=== PATIENT | female | born 1955 | race Caucasian/White ===

== ENCOUNTER 2017-02-07 16:35 | Inpatient (IN) | payer OTHER ==
[2017-02-07] MEDS ORDERED: SODIUM CHLORIDE 0.9% 1,000 ML IV STA ×2 (16:40)
--- NOTE | 2017-02-07 16:46 | ED ---
SOB HPI - General Stated Complaint: Difficulty Breathing Time Seen by Provider: 02/07/17 16:35 Source: patient, family, EMS, RN notes reviewed Mode of arrival: EMS - History of Present Illness Initial Comments: This is a 62-year-old female who just quit smoking recently who apparently has had a history of sciatic-type pain past several days has been in bed not eating which she has been drinking some fluids. She denies any fevers chills sweats she has had some nausea when she denies any food. EMS was called and she had sciatic-type pain going down the left side. They arrived she was rolled onto her side she became very dyspneic ashen and drop her pulse ox about 85%. She was repositioned it did improve also oxygen was given. She denies any overt cough or other symptoms at this time per her she has not been eating or drinking well decreased activity. This may go on for at least several weeks. MD Complaint: shortness of breath - Related Data Home Medications Medication Instructions Recorded Confirmed Levothyroxine Sodium [Synthroid] 125 mcg PO QAM 07/07/15 02/07/17 Atorvastatin Calcium [Lipitor] 10 mg PO HS 02/07/17 02/07/17 Methocarbamol [Robaxin] 500 mg PO Q8H 02/07/17 02/07/17 Ondansetron [Zofran] 4 mg PO Q6H 02/07/17 02/07/17 traMADol HCL [Ultram] 50 mg PO Q6HR 02/07/17 02/07/17 Allergies Allergy/AdvReac Type Severity Reaction Status Date / Time No Known Allergies Allergy Verified 02/07/17 17:40 Review of Systems ROS Statement: Those systems with pertinent positive or pertinent negative responses have been documented in the HPI. ROS Other: All systems not noted in ROS Statement are negative. Past Medical History Past Medical History: Hyperlipidemia, Thyroid Disorder History of Any Multi-Drug Resistant Organisms: None Reported Past Surgical History: Breast Surgery, Orthopedic Surgery Past Psychological History: No Psychological Hx Reported Smoking Status: Never smoker Past Alcohol Use History: Occasional Past Drug Use History: None Reported General Exam - General Exam Comments Initial Comments: This is a well-developed asthenic appearing female she does appear somewhat lethargic General appearance: alert, lethargic Head exam: Present: atraumatic, normocephalic, normal inspection Eye exam: Present: normal appearance, PERRL, EOMI. Absent: scleral icterus, conjunctival injection, periorbital swelling ENT exam: Present: mucous membranes dry Neck exam: Present: normal inspection, other (The trachea is midline). Absent: tenderness, meningismus, lymphadenopathy Respiratory exam: Present: decreased breath sounds, other (Decreased breath sounds is fussy on the left). Absent: respiratory distress, wheezes, rales, rhonchi, stridor Cardiovascular Exam: Present: normal rhythm, tachycardia, normal heart sounds. Absent: systolic murmur, diastolic murmur, rubs, gallop, clicks GI/Abdominal exam: Present: soft, normal bowel sounds. Absent: distended, tenderness, guarding, rebound, rigid Rectal exam: Present: deferred Extremities exam: Present: normal inspection, full ROM, normal capillary refill. Absent: tenderness, pedal edema, joint swelling, calf tenderness Back exam: Present: normal inspection, tenderness, paraspinal tenderness ( Tenderness to palpation over the left sciatic outlet and left paraspinous muscles at the level of L4 5 S1.) Neurological exam: Present: alert, oriented X3, CN II-XII intact Psychiatric exam: Present: normal affect, normal mood Skin exam: Present: warm, dry, intact, normal color. Absent: rash Course Vital Signs 02/07/17 02/07/17 02/07/17 16:40 17:15 17:26 Temperature 97.1 F L Pulse Rate 116 H 106 H 106 H Respiratory 24 Rate Blood Pressure 102/68 O2 Sat by Pulse 97 Oximetry 02/07/17 02/07/17 02/07/17 17:37 18:30 20:07 Temperature Pulse Rate 110 H 111 H 112 H Respiratory 18 18 Rate Blood Pressure 114/71 104/66 140/65 O2 Sat by Pulse 97 95 95 Oximetry - Reevaluation(s) Reevaluation #1: 02/07/17 20:18 I did reevaluate the patient several occasions she did get some improvement in her breathing after the unit dose updraft. Medical Decision Making - Medical Decision Making I did a long discussion with the patient family regarding the findings. Patient will be admitted with consultation by pulmonary medicine as well as oncology and cardiology. I did contact Dr. Villarreal to notify him of the elevated troponin though the EKG shows no acute findings. Patient did not have any chest pain. - Lab Data Result diagrams: 02/07/17 16:51 02/07/17 16:51 Lab Results 02/07/17 02/07/17 02/07/17 Range/Units 16:51 16:51 16:51 WBC 16.6 H (3.8-10.6) k/uL RBC 4.31 (3.80-5.40) m/uL Hgb 12.9 (11.4-16.0) gm/dL Hct 38.9 (34.0-46.0) % MCV 90.2 (80.0-100.0) fL MCH 29.9 (25.0-35.0) pg MCHC 33.1 (31.0-37.0) g/dL RDW 14.2 (11.5-15.5) % Plt Count 292 (150-450) k/uL Neutrophils % 87 % Lymphocytes % 5 % Monocytes % 6 % Eosinophils % 1 % Basophils % 0 % Neutrophils # 14.4 H (1.3-7.7) k/uL Lymphocytes # 0.9 L (1.0-4.8) k/uL Monocytes # 0.9 (0-1.0) k/uL Eosinophils # 0.2 (0-0.7) k/uL Basophils # 0.0 (0-0.2) k/uL PT (9.0-12.0) sec INR (<1.1) APTT (22.0-30.0) sec D-Dimer (<0.60) mg/L FEU Sodium 131 L (137-145) mmol/L Potassium 4.9 (3.5-5.1) mmol/L Chloride 94 L (98-107) mmol/L Carbon Dioxide 30 (22-30) mmol/L Anion Gap 7 mmol/L BUN 31 H (7-17) mg/dL Creatinine 0.66 (0.52-1.04) mg/dL Est GFR (MDRD) Af Amer >60 (>60 ml/min/1.73 sqM) Est GFR (MDRD) Non-Af >60 (>60 ml/min/1.73 sqM) Glucose 106 H (74-99) mg/dL Plasma Lactic Acid Shakir (0.7-2.0) mmol/L Calcium 10.5 H (8.4-10.2) mg/dL Magnesium 2.3 (1.6-2.3) mg/dL Total Bilirubin 0.9 (0.2-1.3) mg/dL AST 71 H (14-36) U/L ALT 54 H (9-52) U/L Alkaline Phosphatase 185 H (38-126) U/L Total Creatine Kinase 99 (30-135) U/L CK-MB (CK-2) 3.9 H* (0.0-2.4) ng/mL CK-MB (CK-2) Rel Index 3.9 Troponin I 0.289 H* (0.000-0.034) ng/mL NT-Pro-B Natriuret Pep pg/mL Total Protein 6.1 L (6.3-8.2) g/dL Albumin 3.2 L (3.5-5.0) g/dL 02/07/17 02/07/17 02/07/17 Range/Units 16:51 16:51 16:51 WBC (3.8-10.6) k/uL RBC (3.80-5.40) m/uL Hgb (11.4-16.0) gm/dL Hct (34.0-46.0) % MCV (80.0-100.0) fL MCH (25.0-35.0) pg MCHC (31.0-37.0) g/dL RDW (11.5-15.5) % Plt Count (150-450) k/uL Neutrophils % % Lymphocytes % % Monocytes % % Eosinophils % % Basophils % % Neutrophils # (1.3-7.7) k/uL Lymphocytes # (1.0-4.8) k/uL Monocytes # (0-1.0) k/uL Eosinophils # (0-0.7) k/uL Basophils # (0-0.2) k/uL PT 12.5 H (9.0-12.0) sec INR 1.3 (<1.1) APTT 23.9 (22.0-30.0) sec D-Dimer 8.35 H (<0.60) mg/L FEU Sodium (137-145) mmol/L Potassium (3.5-5.1) mmol/L Chloride (98-107) mmol/L Carbon Dioxide (22-30) mmol/L Anion Gap mmol/L BUN (7-17) mg/dL Creatinine (0.52-1.04) mg/dL Est GFR (MDRD) Af Amer (>60 ml/min/1.73 sqM) Est GFR (MDRD) Non-Af (>60 ml/min/1.73 sqM) Glucose (74-99) mg/dL Plasma Lactic Acid Shakir 1.9 (0.7-2.0) mmol/L Calcium (8.4-10.2) mg/dL Magnesium (1.6-2.3) mg/dL Total Bilirubin (0.2-1.3) mg/dL AST (14-36) U/L ALT (9-52) U/L Alkaline Phosphatase (38-126) U/L Total Creatine Kinase (30-135) U/L CK-MB (CK-2) (0.0-2.4) ng/mL CK-MB (CK-2) Rel Index Troponin I (0.000-0.034) ng/mL NT-Pro-B Natriuret Pep 348 pg/mL Total Protein (6.3-8.2) g/dL Albumin (3.5-5.0) g/dL - EKG Data -: EKG Interpreted by Mi EKG shows normal: sinus rhythm (EKG shows sinus tachycardia of 120 TN interval 150 to QRS 68 QT/QTC of 394/4:15 low-voltage poor R-wave progression.) - Radiology Data Radiology results: report reviewed (I did review the imaging and reports. There is no evidence of pulmonary embolism. He does demonstrate pleural effusion and evidence of a mass in the left lung.), image reviewed Disposition Clinical Impression: Mass of left lung, Pleural effusion, left, Bronchospasm, acute, Dehydration, Elevated troponin, Elevated d-dimer Disposition: ADMITTED IP TO THIS HOSP Condition: Serious Referrals: Elie Villaseñor MD [Primary Care Provider] - 1-2 days
--- NOTE | 2017-02-07 16:56 | XR ---
EXAMINATION TYPE: XR chest 1V portable DATE OF EXAM: 02/07/2017 4:51 PM COMPARISON: NONE HISTORY: Dyspnea TECHNIQUE: Single frontal view of the chest is obtained. FINDINGS: Left hemithorax is almost completely opaque. Right lung is clear. There is no gross heart failure. Heart is probably enlarged. There are chest leads. IMPRESSION: Very large left pleural effusion. Follow-up is recommended. Heart and mediastinum are sh ifted slightly to the right side and this is consistent with the mild tension hydrothorax.
[2017-02-07 17:00] LABS: Basophils % (A) 0 %; CH 30.9; CHCM 34.4; Eosinophils # (A) 0.2 k/uL (0-0.7); Eosinophils % (A) 1 %; HCT 38.9 % (34.0-46.0); HGB 12.9 gm/dL (11.4-16.0); Luc # (Auto) 0.19; Luc % (Auto) 1; Lymphocytes # (A) 0.9 k/uL (1.0-4.8); Lymphocytes % (A) 5 %; MCH 29.9 pg (25.0-35.0); MCHC 33.1 g/dL (31.0-37.0); MCV 90.2 fL (80.0-100.0); Mean Platelet Volume 7.5; Monocytes # (A) 0.9 k/uL (0-1.0); Monocytes % (A) 6 %; Neutrophils # (A) 14.4 k/uL (1.3-7.7); Neutrophils % (A) 87 %; RBC 4.31 m/uL (3.80-5.40); RDW 14.2 % (11.5-15.5); WBC 16.6 k/uL (3.8-10.6); WBC (Perox) 16.31
[2017-02-07] MEDS ORDERED: IPRATROPIUM-ALBUTEROL 3 ML NEB INHALATION STA (17:01)
[2017-02-07 17:11] LABS: ALT 54 U/L (9-52); AST 71 U/L (14-36); Alkaline Phosphatase 185 U/L (38-126); Anion Gap 7 mmol/L; Blood Urea Nitrogen 31 mg/dL (7-17); Calcium 10.5 mg/dL (8.4-10.2); Carbon Dioxide 30 mmol/L (22-30); Chloride 94 mmol/L (98-107); Glucose 106 mg/dL (74-99); Magnesium 2.3 mg/dL (1.6-2.3); Non-African American GFR(MDRD) >60 (>60 ml/min/1.73 sqM); Potassium 4.9 mmol/L (3.5-5.1); Sodium 131 mmol/L (137-145); Total Bilirubin 0.9 mg/dL (0.2-1.3); Total Protein 6.1 g/dL (6.3-8.2)
[2017-02-07 17:18] LABS: INR 1.3 (<1.1); Partial Thromboplastin Time 23.9 sec (22.0-30.0); Prothrombin Time 12.5 sec (9.0-12.0)
[2017-02-07 17:42] LABS: Creatine Kinase MB 3.9 ng/mL (0.0-2.4); Troponin I 0.289 ng/mL (0.000-0.034)
[2017-02-07] MEDS ORDERED: RX INFO: IV CONTRAST WAS GIVEN 1 EACH MISC MISCELLANE PRN (17:46)
[2017-02-07] MEDS ORDERED: HYDROmorphone 1 MG/ML 1 ML SYRINGE IVP STA ×2 (17:52→20:29)
--- NOTE | 2017-02-07 18:30 | CT ---
EXAMINATION TYPE: CT angio chest DATE OF EXAM: 02/07/2017 6:19 PM COMPARISON: NONE HISTORY: Shortness of breath CT DLP: 263.8 mGycm Automated exposure control for dose reduction was used. CONTRAST: CTA scan of the thorax is performed with IV Contrast, patient injected with 100 mL of Omnipaque 350, pulmonary embolism protocol. There are 3-D post processed images.. FINDINGS: There is large left pleural effusion with significant atelectasis of the left lung. Heart and mediast inum are shifted to the right side. There is extensive abnormal increased density in the mediastinum with lymph nodes that measure up to almost 4 cm in the paratracheal and subcarinal region. There is t apering of the left lower lobe pulmonary artery probably due to extrinsic pressure from left sided br onchial adenopathy. The right pulmonary artery and its branches show no filling defect. There is no evidence of aortic an eurysm or dissection. There is no pericardial effusion. There is no right-sided pleural effusion. Rig ht lung shows mild increased interstitial pulmonary density. There is a fracture of the left posterior lateral eighth rib with soft tissue mass and probable destr uction consistent with pathologic fracture. IMPRESSION: NO EVIDENCE OF PULMONARY EMBOLISM. EXTENSIVE MEDIASTINAL AND LEFT BRONCHIAL ADENOPATHY SUSPICIOUS FOR TUMOR. EXTRINSIC NARROWING OF THE LEFT LOWER LOBE PULMONARY ARTERY DUE TO ADENOPATHY. THERE IS A EDMOND G SEGMENT OF LEFT LATERAL EIGHTH RIB DESTRUCTION AND FRACTURE CONSISTENT WITH PATHOLOGIC FRACTURE. TH ERE IS SOME PLEURAL THICKENING ON THE LEFT LATERAL AND POSTERIOR CHEST WALL THAT RAISE THE POSSIBILIT Y OF MESOTHELIOMA. There is a 1.5 cm rounded hypodensity in the posterior right lobe of the liver tommy t is probably a cyst. There is 20% anterior wedging of T4 vertebra probably due to osteoporosis.
[2017-02-07] MEDS ORDERED: NALOXONE 0.4 MG/ML 1 ML VIAL IV PRN (20:31)
[2017-02-07] MEDS ORDERED: NITROGLYCERIN SL TABS 0.4 MG TAB SUBLINGUAL PRN (20:37)
[2017-02-07 22:12] VITALS: BMI 26.9
[2017-02-07] MEDS: METHOCARBAMOL 500 MG TAB PO SCH (22:14)
[2017-02-07] MEDS: ATORVASTATIN 10 MG TAB PO SCH (22:14)
[2017-02-07] MEDS: ONDANSETRON 4 MG TAB PO SCH (22:15)
[2017-02-07] MEDS: SODIUM CHLORIDE 0.9% 1,000 ML IV SCH (22:16)
[2017-02-07 23:55] LABS: Creatine Kinase MB 4.1 ng/mL (0.0-2.4); Troponin I 0.251 ng/mL (0.000-0.034)
[2017-02-08] MEDS: IPRATROPIUM-ALBUTEROL 3 ML NEB INHALATION SCH ×6 (00:01→15:17)
[2017-02-08] MEDS: traMADol 50 MG TAB PO SCH ×5 (00:19→19:40)
[2017-02-08] MEDS: ONDANSETRON 4 MG TAB PO SCH (02:40)
[2017-02-08] MEDS: HYDROmorphone 1 MG/ML 1 ML SYRINGE IV PRN ×4 (02:41→15:10)
[2017-02-08 03:06] VITALS: TEMP 97
[2017-02-08 06:16] LABS: ALT 54 U/L (9-52); AST 65 U/L (14-36); Alkaline Phosphatase 178 U/L (38-126); Anion Gap 8 mmol/L; Blood Urea Nitrogen 30 mg/dL (7-17); Calcium 10.3 mg/dL (8.4-10.2); Carbon Dioxide 27 mmol/L (22-30); Chloride 99 mmol/L (98-107); Glucose 140 mg/dL (74-99); Non-African American GFR(MDRD) >60 (>60 ml/min/1.73 sqM); Potassium 4.9 mmol/L (3.5-5.1); Sodium 134 mmol/L (137-145); Total Bilirubin 0.5 mg/dL (0.2-1.3); Total Protein 5.5 g/dL (6.3-8.2)
[2017-02-08] MEDS ORDERED: ONDANSETRON 4 MG/2 ML VIAL IVP PRN (06:29)
[2017-02-08] MEDS: METHOCARBAMOL 500 MG TAB PO SCH ×4 (06:31→20:22)
[2017-02-08] MEDS: LEVOTHYROXINE 125 MCG TAB PO SCH ×2 (06:31→07:59)
[2017-02-08 06:35] LABS: Creatine Kinase MB 4.2 ng/mL (0.0-2.4)
[2017-02-08 06:36] LABS: Troponin I 0.209 ng/mL (0.000-0.034)
[2017-02-08] MEDS: SODIUM CHLORIDE 0.9% 1,000 ML IV SCH ×2 (06:45→16:23)
[2017-02-08] MEDS ORDERED: ENOXAPARIN 40 MG/0.4 ML SYRINGE SQ SCH (09:00)
[2017-02-08] MEDS ORDERED: ALPRAZolam 0.25 MG TAB PO PRN (09:56)
[2017-02-08] MEDS ORDERED: IPRATROPIUM 0.5 MG/2.5 ML NEBU INHALATION PRN (09:57)
[2017-02-08 10:29] VITALS: BP 140/92
[2017-02-08] MEDS ORDERED: ATENOLOL 25 MG TAB PO SCH (10:30)
--- NOTE | 2017-02-08 10:54 | CONS ---
DATE OF CONSULTATION: CHIEF COMPLAINT: Chest pain. Kathy is a 62-year-old lady with history of dyslipidemia and hypothyroidism who presented to the hospital complaining of chest pain. She has chest discomfort, seems musculoskeletal, moderate to severe primarily located on the left side of her chest and is getting worse with movements and deep breaths. Her work-up so far has received a large left-sided pleural effusion. No evidence of pulmonary embolism and what appears like malignant process involving the lungs. Patient has elevated troponin and elevated d-dimer. EKG shows sinus tachycardia without acute ST-T wave changes. At the time of my evaluation, she is in chest discomfort. Past medical history is significant for: Hypothyroidism, dyslipidemia. Medications at home include: 1. Synthroid. 2. Lipitor. 3. Robaxin. 4. Zofran. 5. Ultram. ALLERGIES: There are no known drug allergies. FAMILY HISTORY: Negative for premature coronary artery disease. SOCIAL HISTORY: Significant for smoking. There is no history of ETOH abuse, or drug abuse. REVIEW OF SYSTEMS: HEENT: Unremarkable. CARDIAC: As described above. RESPIRATORY: As described above. GI: Negative. GENITOURINARY: Negative. Allergy/immunology: Negative. SKIN: Negative. MUSCULOSKELETAL: Significant for arthritis. PSYCHOSOCIAL: Negative. ENDOCRINE: Negative. CONSTITUTIONAL: Negative. Oncological: Negative. HEMATOLOGICAL: Negative. [employer] ARCHITECT: Negative. Rest of the system review is not relevant. On exam, patient is comfortable at rest, afebrile, heart rate is 120 beats per minute, blood pressure 130/72, respirations 18, O2 sat is 95% on 3 liters. There is no jugular venous distention. Carotid upstroke is normal. There is no bruit. Chest exam reveals absent air entry over the left side. Heart exam reveals first and second heart sounds. No gallop. ABDOMEN: Soft. Exam of extremities did not reveal edema. Peripheral pulses are felt. Labs show a potassium of 4.9. Creatinine is 0.8. Three sets of tropes are elevated at 0.2, 0.2 and 0.2. Hemoglobin is normal at 12.9. White cell count is 16.6. A CT scan of the chest is negative for pulmonary embolism. Chest x-ray shows large pleural effusions. ASSESSMENT: 1. Chest pain probably noncardiac in origin. 2. Large left-sided pleural effusion and probably secondary to malignancy. PLAN: From cardiac standpoint, I am going to obtain a 2-D echocardiogram on her tomorrow to assess her LV function and to rule out pericardial disease and to assess her wall motion. I do not believe we are dealing with acute ischemic syndrome in this patient, we are dealing with her acute ischemic syndrome in this patient who has a large pleural effusion and the pain seems musculoskeletal. Thank you for allowing us to participate in the care of this pleasant lady.
--- NOTE | 2017-02-08 11:14 | XR ---
EXAMINATION TYPE: XR chest 1V portable DATE OF EXAM: 02/08/2017 HISTORY: Shortness of breath. COMPARISON: None. TECHNIQUE: Single view of the chest is submitted. FINDINGS: Complete opacification left hemithorax appears to have progressed. Mild right perihilar strandy opacity. The cardiomediastinal structures are obscured. Mediastinal deviation left to right. Degenerative changes are seen of the dorsal spine. IMPRESSION: 1. Complete opacification left hemithorax appears to have progressed.
--- NOTE | 2017-02-08 14:47 | CONS ---
DATE OF CONSULTATION: 62-year-old female who has about a 49 to 50 pack-year history of tobacco use. She apparently recently quit a short time ago. She apparently has seen Dr. Villaseñor for an upper respiratory infection, treated with a number of different medications for a couple weeks now not really getting any better. She presented to the emergency room complaining of shortness of breath. She has not really been eating very much. Has had some pain in the back. No fever, no chills. Did have some nausea. She apparently became very dyspneic when she laid down on her side. Also her saturations are up and she developed significant cyanosis. This lady is in very, very, very poor shape. As I mentioned her CT scan is quite significant. I did have a long talk with the . Very, very ill. She states that she wants nothing done and she would just like to be made comfortable. I suspect she has pretty advanced lung cancer. Again, her complaints have been present for a couple of weeks, getting worse now. Her home medications include: 1. Levothyroxine. 2. Atorvastatin. 3. Robaxin. 4. Zofran. 5. Ultram. ALLERGIES: Denied. Medical history includes hyperlipidemia and hypothyroidism. She also has chronic pain. Mostly sciatic nerve pain. Surgical history includes breast surgery, and some orthopedic procedures. Social history is positive for heavy tobacco use. She smoked for 49 to 50 years at a couple packs a day. Denies any significant alcohol. No illicit drug use. The rest of the history cannot be obtained because she's not in any position to be able to give the history. She is very tachypneic and dyspneic. Very uncomfortable. Review of systems is unreliable at best. Really does not answer any questions for us. Most of the answers come from her . I did tell her to call the kids and bring them into the hospital. Currently, temperature is 97, heart rate to 125, respiratory rate 22, blood pressure 140/92, mean 108, saturations are 94% on 40% Venturi mask. She looks moribund. She is cyanotic. She has got a very plethoric facies. No audible wheezing. HEENT examination is grossly unremarkable. Facial areas are edematous and slightly cyanotic. 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 She does have mucous membranes that are moist. NECK: Supple. No neck vein distention. Cardiovascular examination reveals regular rhythm and rate. Heart sounds are distant. No distinct murmur. Lungs reveal diminished breath sounds on the left. A few scattered rhonchi on the right. No crackles. ABDOMEN: Soft. EXTREMITIES: Intact. Slight edema. Skin without rash. Neurologic examination difficult to perform. Labs are reviewed. White count 16.6, hemoglobin 12.9, hematocrit 38.9, platelet count 392,000. PT, INR were 12.5 and 1.3 respectively. D-dimer 8.35, sodium 134, potassium 4.9, chloride 99, CO2 of 27. Anion gap is 8. BUN and creatinine were 30 and 0.8. Glucose 140, calcium 10.3, AST 65, ALT 54, alkaline phosphatase 178, CK, MB was noted. Troponin 0.251 and 0.209, N-terminal proBNP 348. Albumin 2.9. CT scan from the third yesterday, which showed no evidence of pulmonary embolism. There is extensive mediastinal and left bronchial adenopathy suspicious for tumor with extrinsic narrowing of the left lower lobe pulmonary artery due to lymph node enlargement. There was a long segment of left lateral ( ) destruction and fracture consistent with pathologic fracture. There is some pleural thickening on the left lateral posterior chest wall that raises the possibility of mesothelioma. There is evidence of osteoporosis as well. Microbiology is negative. Labs are reviewed. Medications are reviewed. The patient is basically on updrafts and some Rocephin. ASSESSMENT: 1. Profound shortness of breath secondary to large lung mass involving the left lung pulmonary artery bronchial air tubes and mediastinum, likely consistent with bronchogenic carcinoma. 2. History of hyperlipidemia. 3. History of hypothyroidism. 4. Chronic back pain. 5. Previous history of heavy tobacco use with recent cessation. PLAN: The patient is asking just to be made comfortable. I talked to her . I told him to call the kids in. Diagnosis at this point would be extremely dangerous given how sick she is. I would not venture putting a bronchoscope down her. I am not sure really what to do at this point other than some palliative radiotherapy. She does not seem interested that. I have asked the family to come to discuss it. Additional recommendations and suggestions are forthcoming. I did talk to the nurse extensively about her. Prognosis is very poor. Also I spoke to Dr. Ricardo about her.
--- NOTE | 2017-02-08 17:44 | P.PN ---
Progress Note - Text Consult dictated Impression: 1- Impending respiratory failure 2- Suspect advanced end-stage L lung cancer 3- Advanced COPD Rec: 1- Agree with Dr Michaels's assessment 2- Grave prognosis 3- Not a candidate for any therapeutic intervention 4- Consider palliative Thoracentesis if U/S revealed large pocket of free- floating pleural effusion 5- Agree with In-patient Hospice D/W Dr Michaels, nursing staff and 9 family members at, answered all questions/ concerns bedside
[2017-02-08] MEDS ORDERED: LORazepam 2 MG/ML SYRINGE IV PRN (17:45)
[2017-02-08] MEDS ORDERED: DRY MOUTH SPRAY 44.3 SPRAY/44.3 ML SPRAY MUCOUS MEM PRN (17:45)
[2017-02-08] MEDS ORDERED: MORPHINE SULFATE (100 MG/2 ML) 100 MG in SODIUM CHLORIDE 0.9% 100 ML IV SCH (17:45)
[2017-02-08] MEDS ORDERED: ACETAMINOPHEN SUPPOSITORY 650 MG SUPP RECTAL PRN (17:45)
[2017-02-08] MEDS ORDERED: SCOPOLAMINE 1.5MG/72HR PATCH TRANSDERM PRN (17:45)
[2017-02-08] MEDS ORDERED: HYDROmorphone 1 MG/ML 1 ML SYRINGE IVP PRN (17:45)
[2017-02-08] MEDS ORDERED: ARTIFICIAL TEARS-HYPROMELLOSE DROPS 15 ML BTL BOTH EYES PRN (17:45)
[2017-02-08] MEDS ORDERED: MORPHINE SULFATE 2 MG/ML SYRINGE IV PRN (17:45)
[2017-02-08] MEDS ORDERED: HALOPERIDOL LACTATE 5 MG/ML 1 ML VIAL IM PRN (17:45)
[2017-02-08] MEDS ORDERED: ATROPINE OPHTH SOLN 1% 5ML BTL SUBLINGUAL PRN (17:45)
[2017-02-08] MEDS ORDERED: IPRATROPIUM-ALBUTEROL 3 ML NEB INHALATION PRN (18:48)
--- NOTE | 2017-02-08 18:52 | US ---
EXAMINATION TYPE: US chest DATE OF EXAM: 02/08/2017 COMPARISON: NONE CLINICAL HISTORY: assess for pleural effusion/fluid. EXAM MEASUREMENTS: Left Pleural Effusion fluid pocket: 9.8 cm Left skin to fluid thickness: 1.7 cm Left side marked for possible thoracentesis outside the dept. Pulmonologists are able to review the images in the patient?s EMR. IMPRESSIONS: There is demonstration of a large left pleural effusion.
[2017-02-08] MEDS ORDERED: IPRATROPIUM-ALBUTEROL 3 ML NEB INHALATION SCH (20:00)
[2017-02-08] MEDS: ATORVASTATIN 10 MG TAB PO SCH (20:22)
[2017-02-08 21:23] VITALS: PULSE 98; RESP 14
--- NOTE | 2017-02-08 22:21 | HP ---
DATE OF ADMISSION: 02/07/2017 PRESENTING COMPLAINT: Short of breath, cough. HISTORY OF PRESENTING COMPLAINT: This is a 62-year-old patient of Dr. Villaseñor whose chronic stable medical conditions include hyperlipidemia, hypothyroid, hypercholesterolemia, history is given currently with the , over 6 to 7 weeks patient has been getting treated for some lung infection as patient having more and more dry cough. Some wheezing. No fever, decreased appetite and weight loss. Patient also getting trouble increasing pain in the hip described as left sciatica, was being treated with the family doctor not getting better. If anything, patient becoming more and more short of breath and decided to bring her in. REVIEW OF SYSTEMS: CONSTITUTIONAL: Weak, tired, loss of appetite, weight loss. HEENT: None. RESPIRATORY: As above. CARDIOVASCULAR: None. GASTROINTESTINAL: None. GENITOURINARY: None. NECK: JVD none. MUSCULOSKELETAL: Some pain in the joints, including the left hip pain. Dermatological: Dry skin. HEMATOLOGICAL: None. LYMPHATIC: None. PSYCHIATRY: Tired. NEUROLOGICAL: None. PAST MEDICAL HISTORY: Hyperlipidemia, hypothyroid. PAST SURGICAL HISTORY: Breast surgery, orthopedic surgery. SOCIAL HISTORY: Patient smoked for over 40 years; stopped 5 years ago. . FAMILY HISTORY: Stroke, osteoporosis. HOME MEDICATIONS: 1. Ultram 50 mg p.o. q.6. 2. Zofran 4 mg q.6. 3. Robaxin 5 mg p.o. q.8. 4. Synthroid 125 mcg p.o. daily. 5. Lipitor 10 mg p.o. q.h.s. ALLERGIES: None. PHYSICAL EXAMINATION: Vital signs on presentation: Temperature 97.1, pulse 106, respiratory rate 24, blood pressure and 102/68, pulse ox 97% on 4 liters. GENERAL APPEARANCE: Lying in bed rather tired -appearing, short of breath. EYES: Pupils equal. Conjunctivae normal. HEENT: External appearance of nose and ears normal. Oral cavity with dry mucous membrane. NECK: JVD unable to assess. Mass not palpable. RESPIRATORY: Effort increased. LUNGS: Diminished breath sounds. Prolonged expiration and wheezing. CARDIOVASCULAR: First and second sounds normal. No edema. ABDOMEN: Soft, nontender. Liver and spleen not palpable. LYMPHATIC: No lymph nodes palpable in the neck, axilla. PSYCHIATRY: Patient is awake but tired. Dermatological: Dry skin. NEUROLOGICAL: Pupils equal. No facial asymmetry. Moving all four limbs. INVESTIGATIONS: White count 16.6, hemoglobin 12.9. Potassium 4.9, sodium 131, BUN 31, creatinine 0.66. Troponin 0.2, 0.2, albumin 3.2, AST 71, ALT 54. Chest x-ray shows large left pleural effusion. Chest CTA negative for PE. Extensive mediastinal and left bronchial adenopathy. ( ) extrinsic narrowing of the left lower lobe pulmonary artery and there is a long segment of left lateral ( ) of destruction and fracture consistent with pathological fracture, also 20% anterior wedging of T4 vertebra. EKG shows sinus tachycardia. ASSESSMENT: 1. Acute chronic obstructive pulmonary disease exacerbation in a smoker. 2. Strong suspicion for carcinoma of the lung with large mediastinal adenopathy. Also encasing the pulmonary artery with local destruction of pathological rib fracture. 3. Hyperlipidemia. 4. Hypothyroidism. 5. Sinus tachycardia. 6. Acute hypoxic respiratory failure from underlying lung cancer and smoking. 7. Hyponatremia, likely hypoosmolar from underlying malignancy. 8. Advanced care planning. PLAN: Patient prognosis does not look good. Dr. Michaels from pulmonary consulted. Patient at this point looking to become comfortable. Spoke with the about the grave prognosis and also to Dr. Michaels. Supportive care will be continued, bronchodilators. We will have a family meeting later this afternoon. Getting IV fluids. The patient also getting oxygen supplementation. I had a family meeting in which patient's , two sons, daughter, other family members. Overall even Dr. Michaels was present and lead discussion was held about different options including chemo and radiation though the benefit will be minimal and gives overall poor prognosis and it was felt that even biopsy will be difficult to obtain and patient probably pulmonary status is greatly getting compromised. After lengthy discussion, the patient's family thinking about confirmed hospice. Total time spent in this advanced care planning was about 25 to 30 minutes in addition to history and physical.
--- NOTE | 2017-02-09 08:30 | CONS ---
DATE OF CONSULTATION: REASON FOR CONSULTATION: Lung cancer. HISTORY OF ILLNESS: Kathy is a 62-year-old female who was hospitalized after she presented to the emergency room with progressive shortness of breath. The family reported the patient to have progressive dyspnea over the last 6 months, but more so over the last 6 weeks. She was thought of having "bronchitis" as the family said was tried on multiple antibiotic courses without benefit. She denies having any chest pain, been having scattered musculoskeletal discomfort. The patient who is a very heavy smoker was found to have atelectatic left lung on chest x-ray. CT scan of her chest shows a very large tumoral masses with extensive mediastinal involvement, the entire mediastinum is shifted to the right. The patient has been less responsive, breathing was somewhat agonal. She was evaluated by Dr. Michaels from pulmonary service felt to be doing extremely poorly. In likelihood to have advanced malignancy, recommendations were made for comfort care. PAST MEDICAL HISTORY: 1. Hypothyroidism. 2. Hyperlipidemia. PAST SURGICAL HISTORY: Knee surgery. SMOKING STATUS: The patient reported 50 pack year history of tobacco use. Just recently quit smoking. Denies any alcohol use. FAMILY HISTORY: Noncontributory. REVIEW OF SYSTEMS: Progressive shortness of breath, recent progressive diffuse chest pains. No fever or chills. On examination, the patient was unresponsive, having agonal breathing. Blood pressure was 140/92, pulse is 108 and regular. Respiratory rate was 22 and not labored. Temperature was 97.0. There are no pathologic cervical, supraclavicular, infraclavicular or axillary lymphadenopathy. Trachea is shifted to the right. Heart sounds were distant and absent in the left hemithorax. Right sided breath sounds were very diminished, but reasonably good air exchange. Heart sounds were distant and muffled. Abdomen was soft. Liver and spleen were not clinically palpable. There are no masses, tenderness or inguinal lymphadenopathy and extremities appears to be grossly unremarkable. IMPRESSION: 1. Suspect advanced end-stage malignancy. 2. Impending respiratory insufficiency. 3. Advanced chronic obstructive pulmonary disease. RECOMMENDATIONS: 1. Agree with Dr. Michaels's assessments. 2. Recommend comfort care only and inpatient hospice. 3. Ultrasound of chest to evaluate potential benefit of thoracentesis in case of free-floating pleural fluid. 4. Analgesics as needed. 5. I had a long discussion with nursing staff and 9 family members at the bedside. Answered all questions and concerns. Will follow the patient along with you.
--- NOTE | 2017-02-10 10:25 | DS ---
DATE OF ADMISSION: 02/07/2017 DATE OF DISCHARGE: 02/08/2017 FINAL DIAGNOSES: 1. Strong probability of advanced lung cancer, metastatic, including bone metastasis. 2. Acute chronic obstructive pulmonary disease exacerbation in a smoker. 3. Hyperlipidemia. 4. Hypothyroidism. 5. Sinus tachycardia. 6. Acute hypoxic respiratory failure from underlying lung cancer and smoking. 7. Hyponatremia, likely hypoosmolar from underlying malignancy. CONSULTATION: Dr. Michaels from pulmonary, Dr. Gupta from oncology. HOSPITAL COURSE: This patient presented with short of breath, getting worse. CT scan did confirm advancing metastatic lung cancer. Because of poor pulmonary status, it was felt by all of us, including myself and Dr. Michaels, that the patient was rather terminal. I had a family meeting held, decided to make the patient hospice. They decided to let me help them pick a hospice company for the same; hence, patient being discharged to inpatient hospice. On examination, patient is able to answer simple questions, but decreased breath sounds, wheezing, DISPOSITION: Inpatient hospice.
== END 2017-02-08 21:25 | disposition hospice, inpatient (51) | DRG 180 ==
LOC: EC 16:35 → 6SEL 20:25
PROVIDERS: ADMIT Hospitalist; ATTEND Hospitalist
DX: C34.32 Malignant neoplasm of lower lobe, left bronchus or lung (principal); J96.01 Acute respiratory failure with hypoxia; J91.0 Malignant pleural effusion; C78.1 Secondary malignant neoplasm of mediastinum; C79.51 Secondary malignant neoplasm of bone; E87.1 Hypo-osmolality and hyponatremia; M84.58XA Pathological fracture in neoplastic disease, other specified site, initial encounter for fracture; E86.0 Dehydration; J44.1 Chronic obstructive pulmonary disease with (acute) exacerbation; Z66 Do not resuscitate; Z51.5 Encounter for palliative care; E03.9 Hypothyroidism, unspecified; E78.5 Hyperlipidemia, unspecified; G89.29 Other chronic pain; M54.9 Dorsalgia, unspecified; E78.00 Pure hypercholesterolemia, unspecified; M54.32 Sciatica, left side; Z87.891 Personal history of nicotine dependence; Z79.899 Other long term (current) drug therapy
CPT/HCPCS: 36415; 71010; 71275; 76604; 80053; 82550; 82553; 83605; 83735; 83880; 84484; 85025; 85379; 85610; 85730; 87040; 93005; 94640; 96361; 96365; 96375; 96376; 99285

== ENCOUNTER 2017-02-08 21:32 | Inpatient (IN) | payer OTHER ==
[2017-02-08] MEDS ORDERED: ATROPINE OPHTH SOLN 1% 5ML BTL SUBLINGUAL PRN (22:37)
[2017-02-08] MEDS ORDERED: ONDANSETRON 4 MG/2 ML VIAL IVP PRN (22:37)
[2017-02-08] MEDS ORDERED: MORPHINE SULFATE 2 MG/ML SYRINGE IV PRN (22:37)
[2017-02-08] MEDS ORDERED: DRY MOUTH SPRAY 44.3 SPRAY/44.3 ML SPRAY MUCOUS MEM PRN (22:37)
[2017-02-08] MEDS ORDERED: LORazepam 2 MG/ML SYRINGE IV PRN (22:37)
[2017-02-08] MEDS ORDERED: SODIUM CHLORIDE 0.9% 1,000 ML IV SCH (22:45)
[2017-02-08] MEDS ORDERED: MORPHINE SULFATE (100 MG/2 ML) 100 MG in SODIUM CHLORIDE 0.9% 100 ML IV SCH (22:45)
[2017-02-09 05:37] VITALS: PULSE 100
[2017-02-09 10:55] VITALS: RESP 17
== END 2017-02-09 11:52 | disposition expired | DRG 180 ==
LOC: 6SEL 21:32
PROVIDERS: ADMIT Hospitalist; ATTEND Hospitalist
DX: C34.90 Malignant neoplasm of unspecified part of unspecified bronchus or lung (principal); J96.01 Acute respiratory failure with hypoxia; E87.1 Hypo-osmolality and hyponatremia; J90 Pleural effusion, not elsewhere classified; M84.48XA Pathological fracture, other site, initial encounter for fracture; C79.51 Secondary malignant neoplasm of bone; J44.1 Chronic obstructive pulmonary disease with (acute) exacerbation; E78.5 Hyperlipidemia, unspecified; Z66 Do not resuscitate; Z51.5 Encounter for palliative care; E78.00 Pure hypercholesterolemia, unspecified; R53.1 Weakness; E03.9 Hypothyroidism, unspecified; R00.0 Tachycardia, unspecified; R59.0 Localized enlarged lymph nodes; R63.4 Abnormal weight loss; M25.552 Pain in left hip; F17.200 Nicotine dependence, unspecified, uncomplicated; Z86.19 Personal history of other infectious and parasitic diseases; Z79.891 Long term (current) use of opiate analgesic; Z79.899 Other long term (current) drug therapy; Z82.3 Family history of stroke